=== PATIENT | female | born 1955 | race African-American/Black ===

== ENCOUNTER 2020-08-22 16:22 | Outpatient (REF) | payer BC, SELFPAY ==
[2020-08-22 18:26] LABS: Erythrocyte Sedimentation Rate 23 MM/HR (0-20)
[2020-08-23 01:22] LABS: Lyme Abs Screen <0.90 index
[2020-08-23 12:22] LABS: Anti Nuclear Antibody Screen NEGATIVE (NEGATIVE)
[2020-08-24 08:51] LABS: Syphilis Screen Nonreactive (Nonreactive)
== END 2020-08-22 16:23 | disposition home or self-care (01) ==
LOC: HO.LAB 16:22
PROVIDERS: PCP Internal Medicine; Visit Provider Psychiatry & Neurology Neurology
DX: G93.49 Other encephalopathy (principal)
CPT/HCPCS: 36415; 85652; 86038; 86039; 86618; 86780